=== PATIENT | female | born 1970 | race Caucasian/White ===

== ENCOUNTER 2023-08-08 19:24 | Emergency (ER) | payer MEDICAID ==
[~2023-08-08] VITALS: Ht 162.6 cm; Wt 80.0 kg
[2023-08-08 20:53] LABS: BASOPHILS % 0.4 % (0.0-2.0); EOSINOPHILS % 1.9 % (0.0-5.0); HEMATOCRIT. 37.1 % (36.0-48.0); LYMPHOCYTES % 24.1 % (20.0-50.0); MEAN CORPUSCULAR HEMOGLOBIN 30.8 pg (28.0-32.0); MEAN CORPUSCULAR HGB CONC 35.1 g/dL (31.0-37.0); MEAN CORPUSCULAR VOLUME 87.8 fL (81.0-99.0); MEAN PLATELET VOLUME 8.5 fl (7.4-10.4); MONOCYTES % 8.7 % (2.0-8.0); NEUTROPHILS % 64.9 % (40.0-76.0); PLATELET 318 x1000/uL (130-400); RED BLOOD CELL COUNT 4.22 mill/uL (4.2-5.4); WHITE BLOOD COUNT 10.6 x1000/uL (4.5-11.0)
[2023-08-08] MEDS: ACTIVATED CHARCOAL 50 G/240 ML TUBE PO ONE (20:57)
[2023-08-08 21:07] LABS: HCG SCREEN NEGATIVE
[2023-08-08 21:12] LABS: ACETAMINOPHEN < 2 ug/mL (10-30); ALANINE AMINOTRANSFERASE 26 IU/L (10-49); ALBUMIN 4.7 g/dL (3.2-4.8); ASPARTATE AMINOTRANSFERASE 29 IU/L (<34); BILIRUBIN TOTAL 0.5 mg/dL (0.1-1.0); CALCIUM 9.5 mg/dL (8.7-10.4); CARBON DIOXIDE 28 mEq/L (21-32); CHLORIDE 99 mEq/L (98-107); CREATININE 0.9 mg/dL (0.6-1.0); ETHANOL BLOOD < 10 mg/dL (<10); GLUCOSE 96 mg/dL (70-105); PROTEIN TOTAL 7.6 g/dL (6.0-8.3); SODIUM 136 mEq/L (136-145); UREA NITROGEN BLOOD 14 mg/dL (9-23)
[2023-08-08] MEDS: POTASSIUM CHLORIDE 20MEQ/PACKET PO ONE (23:19)
[2023-08-09 00:53] LABS: CLARITY URINE CLEAR (CLEAR); COLOR URINE YELLOW (YELLOW); GLUCOSE URINE NEGATIVE (NEGATIVE); KETONES URINE NEGATIVE (NEGATIVE); LEUKOCYTE ESTERASE URINE NEGATIVE (NEGATIVE); NITRITE URINE NEGATIVE (NEGATIVE); OCCULT BLOOD URINE NEGATIVE (NEGATIVE); PROTEIN URINE NEGATIVE (NEGATIVE); SPECIFIC GRAVITY URINE 1.008 (1.005-1.030); UROBILINOGEN URINE 0.2 E.U./dL (0.2-1.0)
[2023-08-09 01:04] LABS: *AMPHETAMINES SCREEN URINE NEGATIVE (NEGATIVE); *BARBITURATES SCREEN URINE NEGATIVE (NEGATIVE); *BENZODIAZEPINES SCREEN URINE NEGATIVE (NEGATIVE); *COCAINE SCREEN URINE NEGATIVE (NEGATIVE); CANNABINOID URINE SCREEN NEGATIVE (NEGATIVE); ECSTASY MDMA SCREEN URINE CONF.TEST INDICATED (NEGATIVE); METHADONE URINE SCREEN Neg (NEGATIVE); OPIATES URINE SCREEN PRESUMPTIVE POSITIVE (NEGATIVE); PHENCYCLIDINE URINE SCREEN NEGATIVE (NEGATIVE)
[2023-08-09] MEDS: ALBUTEROL (0.083%) 2.5MG/3ML NEB HHN ONE (14:53)
[2023-08-09 15:05] VITALS: PULSE 84; RESP 16; O2SAT 97
[2023-08-09] MEDS: ACETAMINOPHEN 325MG TABLET PO ONE (16:15)
[2023-08-09 17:37] LABS: CALCIUM 9.2 mg/dL (8.7-10.4); CARBON DIOXIDE 22 mEq/L (21-32); CHLORIDE 104 mEq/L (98-107); CREATININE 0.9 mg/dL (0.6-1.0); GLUCOSE 116 mg/dL (70-105); POTASSIUM 4.3 mEq/L (3.5-5.1); SODIUM 134 mEq/L (136-145); UREA NITROGEN BLOOD 13 mg/dL (9-23)
[2023-08-09 19:45] VITALS: BP 138/80; PULSE 99; RESP 18; TEMP 98.2
== END 2023-08-09 20:34 ==
LOC: ER 19:24
DX: T43.291A Poisoning by other antidepressants, accidental (unintentional), initial encounter (principal); R06.02 Shortness of breath; I49.9 Cardiac arrhythmia, unspecified; Z20.822 Contact with and (suspected) exposure to COVID-19; Y92.9 Unspecified place or not applicable
CPT/HCPCS: 80053; 80307; 80329; 80320; 84703; 83735; 85025; 36415 ×2; 93005 ×2; 99285; 80305; 80048; 81003; 94640; 87426; Z7610 ×4; G0480